=== PATIENT | female | born 1985 | race Caucasian/White ===

== ENCOUNTER 2024-02-04 12:31 | Outpatient (AMB) | payer OTHER, SELFPAY ==
--- NOTE | 2024-02-04 12:33 | AM.OFFWIN_ITS ---
Intake Vital Signs 02/04/24 12:34 Height 5 ft 6 in Weight 185 lb BMI 29.9 BP 118/76 Blood Pressure Location Lt brachial Position Sitting Pulse 85 Pulse Source Pulse Oximeter Temp 98.0 F Temp Source Oral Pulse Oximetry (%) 98 Oxygen Delivery Method Room Air Intake Visit Reasons: [employer] Cough, Congestion, Sweats, wheezing Intake Note: pt is here for c/o cough, congestion, wheezing. Patient Tobacco Use Status: Never used Tobacco Allergies No Known Allergies Allergy (Verified 02/04/24 12:35) Do you need a note to return to daycare/school/sports/work: No HPI HPI Comments History of Present Illness Details The patient presents to the urgent care for evaluation of cough and congestion. She states that her symptoms started a couple of days ago with a cough but she woke up this morning drenched in sweat though she does not feel feverish. She reports that her boyfriend was recently diagnosed with walking pneumonia. She is concerned that he gave it to her. She has been having him sleep in another room and she has been wearing a mask as she has a 1-month-old baby. She is trying to avoid infecting the baby. Patient is a nonsmoker. She is occasionally nursing. [facility] Social History Patient Tobacco Use Status: Never used Tobacco Physical Exam Vital Signs: Last Vital Signs Temp 98.0 F 02/04/24 12:34 Pulse 85 02/04/24 12:34 BP 118/76 02/04/24 12:34 Pulse Ox 98 02/04/24 12:34 Oxygen Delivery Method Room Air 02/04/24 12:34 BMI result Body Mass Index 29.9 Const General: healthy appearing and no acute distress HEENT Mouth: Normal oral and palatal mucosa present Resp Effort & Inspection: normal respiratory effort and able to speak in complete sentences Auscultation: clear to auscultation bilaterally Cardio Rate: regular rate Rhythm: regular rhythm Assessment & Plan Assessment & Plan (1) Viral syndrome: Code(s): B34.9 - Viral infection, unspecified Plan Patient's symptoms are consistent with acute viral syndrome. Lungs are clear. Discussed x-ray though patient's symptoms do not sound consistent with pneumonia and I have discussed this with her so at this time she is declined. Etiology unclear at this time. Patient is well appearing stable for outpatient management no need for antibiotics at this time. Patient was counseled on this. Recommended supportive care and OTC medications. Work note given. Coding Level of Care Code Est Pt Level 3 (91525) Diagnoses Viral syndrome B34.9
[2024-02-04 12:34] VITALS: BP 118/76; PULSE 85; TEMP 36.7; O2SAT 98; BMI 29.9
== END 2024-02-04 13:24 | disposition home or self-care (01) ==
PROVIDERS: Visit Provider Emergency Medicine
DX: B34.9 Viral infection, unspecified (principal)
CPT/HCPCS: 99213

== ENCOUNTER 2024-09-15 10:29 | Outpatient (AMB) | payer OTHER, SELFPAY ==
--- NOTE | 2024-09-15 10:35 | MHC.OFFWIV ---
Intake Vital Signs 09/15/24 10:38 Weight 194 lb BP 122/80 Blood Pressure Location Lt brachial Position Sitting Pulse 74 Pulse Source Pulse Oximeter Pulse Oximetry (%) 98 Oxygen Delivery Method Room Air Intake Visit Reasons: EP WC injury rt w Intake Note: Patient here for right wrist pain while lifting up a case of water which happened on friday. Patient Tobacco Use Status: Never used Tobacco Allergies No Known Allergies Allergy (Verified 09/15/24 10:38) Do you need a note to return to daycare/school/sports/work: Yes HPI EP WC injury rt w HPI Details This note is constructed using voice recognition software. While every effort has been made to ensure accuracy, acute dialysis registered nurse errors may have been included. The patient is a 39 year old female who presents to the clinic today with right wrist pain since injury at work on 09/13/24. She reports that the pain is in the volar aspect of her wrist, worse on flexion and extension, since about 1 hour after lifting a case of water at work. She tried Tylenol, and an Jose wrap with some effect. She denies any previous injury to the area, change in range of motion, or difficulty with strength, or numbness or tingling. She is right-hand dominant. [facility] Social History Patient Tobacco Use Status: Never used Tobacco Review of Systems Const All systems reviewed & are unremarkable except as noted in HPI and below Physical Exam Vital Signs: Last Vital Signs Pulse 74 09/15/24 10:38 BP 122/80 09/15/24 10:38 Pulse Ox 98 09/15/24 10:38 Oxygen Delivery Method Room Air 09/15/24 10:38 Const General: cooperative, healthy appearing, comfortable, no acute distress and well developed Orientation/consciousness: patient oriented x3 Limitations: no limitations Resp Effort & Inspection: normal respiratory effort and able to speak in complete sentences Skin General skin exam: no rashes or lesions noted Neuro General: patient oriented x3 Extrem Other: Hand grasp strong, equal bilaterally, 5/5. Full range of motion right wrist, elbow. No area tender to palpation, but tenderness on flexion and extension in the volar aspect of the wrist. No ecchymosis, erythema, or edema. Distal neurovascular exam intact. General: Yes normal to inspection Assessment & Plan Assessment & Plan (1) Strain of right wrist: Code(s): S66.911A - Strain of unspecified muscle, fascia and tendon at wrist and hand level, right hand, initial encounter Qualifiers: Encounter type: initial encounter Qualified Code(s): S66.911A - Strain of unspecified muscle, fascia and tendon at wrist and hand level, right hand, initial encounter Plan: Advised rest, ice, compression, elevation, avoiding lifting more than 10 lb, and use of NSAIDs as needed for pain. Letter provided for return to work, with restrictions. Advised follow up as needed with worsening symptoms or failure to resolve. Plan See above for full details and plan. Coding Level of Care Code Est Pt Level 3 (80055) Diagnoses Strain of right wrist, initial encounter S66.911A Encounter type: initial encounter
[2024-09-15 10:38] VITALS: BP 122/80; PULSE 74; O2SAT 98
== END 2024-09-15 12:02 | disposition home or self-care (01) ==
PROVIDERS: Visit Provider Registered Nurse
DX: S66.911A Strain of unspecified muscle, fascia and tendon at wrist and hand level, right hand, initial encounter (principal)

== ENCOUNTER → 2024-09-15 10:29 | Outpatient (BNVA) | payer OTHER, SELFPAY | PROVIDERS: Visit Provider Registered Nurse | DX: S66.911A Strain of unspecified muscle, fascia and tendon at wrist and hand level, right hand, initial encounter (principal) | CPT/HCPCS: 99212 ==

== ENCOUNTER 2025-07-25 10:17 | Outpatient (AMB) | payer OTHER, SELFPAY ==
[2025-07-25 11:23] VITALS: BP 100/60; PULSE 82; TEMP 36.8; O2SAT 99; BMI 30.7
--- NOTE | 2025-07-25 11:23 | MHC.OFFWIV ---
Intake Vital Signs 07/25/25 11:23 Height 5 ft 6 in Weight 190 lb BMI 30.7 BP 100/60 Blood Pressure Location Lt brachial Position Sitting Pulse 82 Pulse Source Pulse Oximeter Temp 98.2 F Temp Source Oral Pulse Oximetry (%) 99 Oxygen Delivery Method Room Air Intake Visit Reasons: EP Pain in right foot Intake Note: pt presents with pain to right ankle and right heal for a month Patient Tobacco Use Status: Never used Tobacco Allergies No Known Allergies Allergy (Verified 07/25/25 11:24) Do you need a note to return to daycare/school/sports/work: No HPI HPI Comments History of Present Illness Details History of Present Illness - The patient is a 40-year-old female presenting with right heel pain. - The pain began approximately one month ago after stepping off a curb, described as a hot, burning, searing sensation. - Initially, the pain was located under the foot and has since moved to the heel. - The pain is exacerbated by sitting and improves with walking. - There is tenderness when squeezing the sides of the foot. - She has pain when standing or bearing weight. - She denies numbness, tingling, redness, swelling, ankle pain, calf pain, or knee pain. Physical Exam General: Cooperative, healthy appearing, comfortable, no acute distress and well developed Orientation: Patient oriented x3 Respiratory: Normal respiratory effort and able to speak in complete sentences. Clear to auscultation bilaterally Cardiovascular: Regular rate and rhythm. Normal S1 and S2 Skin: No rashes or lesions noted. No bruises or swelling noted to the foot. No erythema noted. Neuro: Patient oriented x3. Sensation is intact. Extremities: No swelling noted. Normal to inspection. No deformity noted. TTP of the right calcaneous. No TTP of the medial or lateral malleolus. No TTP of the metatarsals. No TTP of the right Achilles tendon, plantar fascia or forefoot. Ambulates with a limp. Strength is 5/5 on the LE. Patient was informed and verbally consented to the use of an ambient scribe for clinic note documentation during this visit. [facility] Social History Patient Tobacco Use Status: Never used Tobacco Review of Systems Const All systems reviewed & are unremarkable except as noted in HPI and below Physical Exam Vital Signs: Last Vital Signs Temp 98.2 F 07/25/25 11:23 Pulse 82 07/25/25 11:23 BP 100/60 07/25/25 11:23 Pulse Ox 99 07/25/25 11:23 Oxygen Delivery Method Room Air 07/25/25 11:23 BMI result Body Mass Index 30.7 Results Reviewed Results Reviewed: will review the x-ray in the office Assessment & Plan Assessment & Plan (1) Right foot pain: Code(s): M79.671 - Pain in right foot Plan Most likely strain vs calcaneal spur vs tendonitis vs arthritis plan - will order an x-ray in the office - rest, ice and elevation to the right foot - tylenol or motrin as needed for pain - wear the post op shoe for comfort - can refer her to ortho if the pain does not resolve - follow up with PCP Orders: Orders XR foot RT min 3V Today M79.671 - Pain in right foot Coding Level of Care Code Est Pt Level 4 (08827) Diagnoses Right foot pain M79.671
== END 2025-07-25 12:54 | disposition home or self-care (01) ==
PROVIDERS: Visit Provider Physician Assistant Medical
DX: M79.671 Pain in right foot (principal)

== ENCOUNTER 2025-07-25 10:17 | Outpatient (REF) | payer OTHER, SELFPAY ==
--- NOTE | ~2025-07-25 | XR_ITS ---
EXAMINATION: XR FOOT, RIGHT CLINICAL INFORMATION: M79.671 - Pain in right foot COMPARISON: None available. TECHNIQUE: AP, lateral, and oblique views of the right foot. FINDINGS: There is no fracture, dislocation, or suspicious bone lesion. There is normal alignment. Joint spaces are preserved. Normal plantar arch. Midfoot and hindfoot appear normal. There is a small plantar calcaneal spur. There is no soft tissue abnormality. XR/XR foot RT min 3V IMPRESSION: No acute bony or soft tissue abnormalities of the right foot. Electronically signed by: Kavon Rose MD 07/25/2025 12:36 PM EDT
== END 2025-07-25 10:18 | disposition home or self-care (01) ==
LOC: HO.HMGCX 10:17
PROVIDERS: Visit Provider Physician Assistant Medical
DX: M79.671 Pain in right foot (principal)
CPT/HCPCS: 73630; 99212

== ENCOUNTER → 2025-07-25 12:13 | Outpatient (BNV) | payer OTHER, SELFPAY | PROVIDERS: Visit Provider Radiology Diagnostic Radiology | DX: M79.671 Pain in right foot (principal) | CPT/HCPCS: 73630 ==